=== PATIENT | female | born 1980 | race Caucasian/White ===

== ENCOUNTER 2019-06-20 00:37 | Emergency (ER) | payer OTHER ==
[~2019-06-20] VITALS: Ht 147.3 cm; Wt 75.9 kg
[~2019-06-20 00:37] MED LIST: CEPH-443 PO; IBUP-1542 PO; PHEN-538 PO
[2019-06-20 00:38] VITALS: BP 148/106; PULSE 95; RESP 18; Ht 147.3 cm; Wt 75.9 kg
[2019-06-20] MEDS ORDERED: KETOROLAC 30 MG INJ IM STA (01:09)
[2019-06-20] MEDS ORDERED: HYDROCODONE/APAP (5/325) TAB PO ONE (01:30)
== END 2019-06-20 02:03 | disposition home or self-care (01) ==
LOC: FTE 00:37
DX: N39.0 Urinary tract infection, site not specified (principal)
CPT/HCPCS: 81003; 81025; 96372; J1885; Z7502; Z7610